=== PATIENT | male | born 1980 ===

== ENCOUNTER 2017-01-05 11:11 | Emergency (ER) | payer OTHER ==
[2017-01-05] MEDS ORDERED: Sodium Chloride 0.9% 1,000 ML IV STA (13:08)
[2017-01-05 13:11] VITALS: BP 125/75; PULSE 61; RESP 20; TEMP 98.3; O2SAT 98
[2017-01-05 13:38] LABS: BASO % 0.4 % (0.0-2.0); EOS # 0.1 K/uL (0.0-0.7); EOS % 1.2 % (0.0-4.0); HEMATOCRIT 47.6 % (35.0-51.0); LYMPH # 1.8 K/uL (1.0-4.3); LYMPH % 29.8 % (20.0-40.0); MEAN CELL VOLUME 77.3 fl (80.0-94.0); MEAN CORPUSCULAR HEMOGLOBIN 25.4 pg (27.0-31.0); MEAN CORPUSCULAR HGB CONC 32.9 g/dL (33.0-37.0); MEAN PLATELET VOLUME 8.6 fl (7.2-11.7); MONO # 0.4 K/uL (0.0-0.8); MONO % 7.2 % (0.0-10.0); NEUT # 3.6 K/uL (1.8-7.0); NEUT % 61.4 % (50.0-75.0); NRBC % 0.1 % (0.0-0.0); RED CELL DISTRIBUTION WIDTH 14.2 % (11.5-14.5); WHITE BLOOD COUNT 5.9 K/uL (4.8-10.8)
[2017-01-05 13:50] LABS: ALB/GLOB RATIO 1.1 (1.0-2.1); ALKALINE PHOSPHATASE 80 U/L (38-126); ALT/SGPT 42 U/L (21-72); AST/SGOT 33 U/L (17-59); BILIRUBIN,TOTAL 0.9 mg/dl (0.2-1.3); BLOOD UREA NITROGEN 11 mg/dl (9-20); CALCIUM 9.8 mg/dL (8.4-10.2); CARBON DIOXIDE 26 mmol/L (22-30); CHLORIDE 102 mmol/L (98-107); GFR AFRICAN-AMERICAN > 60; GLUCOSE,RANDOM 100 mg/dL (75-110); LIPASE 153 U/L (23-300); SODIUM 144 mmol/l (132-148); TOTAL PROTEIN 8.6 G/DL (6.3-8.2)
[2017-01-05 14:02] LABS: POTASSIUM 4.6 MMOL/L (3.6-5.0)
--- NOTE | 2017-01-05 14:10 | ED PDOC ---
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 states for the past 2 weeks he's had RUQ abdominal pain radiating to his R flank area. Reports pain is intermittent. On Thursday he went to [place] [facility] and had blood work done but no radiologic diagnostics and was told he has " gallstone colic." Reports he was given pain medication (pt. does not remember name) which has been working but today at work he did not take his pain medication and pain returned prompting ED visit. Denies fever, N/V/D, previous abdominal surgeries, chest pain, SOB, constipation, melena, hematochezia, BRBPR. Past Medical History Reviewed: Historical Data, Nursing Documentation, Vital Signs Vital Signs: Last Vital Signs Temp 98.3 F 01/05/17 11:18 Pulse 61 01/05/17 11:18 Resp 20 01/05/17 11:18 BP 125/75 01/05/17 11:18 Pulse Ox 98 01/05/17 14:11 - Family History Family History: States: No Known Family Hx - Allergies Allergies/Adverse Reactions: Allergies Allergy/AdvReac Type Severity Reaction Status Date / Time No Known Allergies Allergy Verified 01/05/17 12:06 Review of Systems ROS Statement: Except As Marked, All Systems Reviewed And Found Negative Gastrointestinal: Positive for: Abdominal Pain Physical Exam - Reviewed Nursing Documentation Reviewed: Yes Vital Signs Reviewed: Yes - Physical Exam Appears: Positive for: Well, Non-toxic, No Acute Distress Head Exam: Positive for: ATRAUMATIC, NORMAL INSPECTION, NORMOCEPHALIC Skin: Positive for: Normal Color, Warm. Negative for: Rash Eye Exam: Positive for: EOMI, Normal appearance, PERRL ENT: Positive for: Normal ENT Inspection Neck: Positive for: Normal, Painless ROM Cardiovascular/Chest: Positive for: Regular Rate, Rhythm Respiratory: Positive for: CNT, Normal Breath Sounds Gastrointestinal/Abdominal: Positive for: Normal Exam, Bowel Sounds, Soft, Other (Negative Ku's sign). Negative for: Tenderness Back: Positive for: Normal Inspection. Negative for: L CVA Tenderness, R CVA Tenderness Extremity: Positive for: Normal ROM Neurologic/Psych: Positive for: Alert, Oriented - Laboratory Results Result Diagrams: 01/05/17 13:20 01/05/17 13:20 - ECG O2 Sat by Pulse Oximetry: 98 - Progress ED Course And Treament: Labs ordered. Abd US ordered. IV line established. Abd US: negative. Re-evaluation Time: 15:55 (Pt. states he is feeling much better. Abd soft and non-tender. Results d/w patient and instructed to continue taking pain medications and to f/u with clinic which he made an appointment with for the end of the month. ) Condition: Re-examined, Improved Disposition - Clinical Impression Clinical Impression: Abdominal pain - Patient ED Disposition Is Patient to be Admitted: No - Disposition Disposition: Routine/Home Disposition Time: 15:56 Condition: IMPROVED Instructions: Abdominal Pain (ED)
--- NOTE | 2017-01-05 15:14 | US ---
HISTORY: RUQ abdominal pain COMPARISON: None available. TECHNIQUE: Sonographic evaluation of the abdomen. FINDINGS: LIVER: Measures 11.8 cm in sagittal dimension and appears within normal limits of size, shape, and echotexture. No focal hepatic mass identified. The main portal vein appears patent with normal directional flow. No intrahepatic bile duct dilatation. GALLBLADDER: No gallstones. No gallbladder wall thickening. Negative sonographic Ku's sign as assessed by the engineering secretary. COMMON BILE DUCT: Measures 3 mm. PANCREAS: Not well visualized. RIGHT KIDNEY: Measures 10.0 x 4.6 x 4.8cm. No obstructing calculus or hydronephrosis identified. LEFT KIDNEY: Measures 9.0 x 5.8 x 5.1cm. No obstructing calculus or hydronephrosis identified. SPLEEN: Measures approximately 8.6 cm. AORTA: Limited views appear unremarkable. IVC: Limited views appear unremarkable. OTHER FINDINGS: None. IMPRESSION: No acute findings.
== END 2017-01-05 16:09 | disposition home or self-care (01) ==
LOC: H.ER 11:11
DX: R10.11 Right upper quadrant pain (principal)

== ENCOUNTER 2017-04-30 13:00 | Emergency (ER) | payer OTHER ==
[2017-04-30 13:08] VITALS: BP 142/65; PULSE 66; RESP 16; TEMP 97; O2SAT 98
--- NOTE | 2017-04-30 13:24 | ED PDOC ---
Syncope/Near Syncope/Dizziness Time Seen by Provider: 04/30/17 13:08 Chief Complaint (Nursing): Dizziness/Lightheaded Chief Complaint (Provider): Dizzy History Per: Patient Additional Complaint(s): 37 yo male, no PMH, presents to ED with complaints of "dizziness since Thursday ". Past Medical History Vital Signs: Last Vital Signs Temp 97.0 F L 04/30/17 13:07 Pulse 66 04/30/17 13:07 Resp 16 04/30/17 13:07 BP 142/65 04/30/17 13:07 Pulse Ox 98 04/30/17 13:07 - Family History Family History: States: No Known Family Hx - Home Medications Home Medications: Ambulatory Orders Medication Instructions Recorded Methylprednisolone [Medrol Dose 4 mg PO DAILY #21 mg 04/30/17 Pack (21 tabs)] - Allergies Allergies/Adverse Reactions: Allergies Allergy/AdvReac Type Severity Reaction Status Date / Time No Known Allergies Allergy Verified 01/05/17 12:06 - Laboratory Results Result Diagrams: 04/30/17 13:35 04/30/17 13:35 - ECG O2 Sat by Pulse Oximetry: 98 Medical Decision Making Medical Decision Making: IV access established and treatment initiated with Antivert PO MRI IMPRESSION: Mild inferior cerebellar tonsillar herniation, 7 mm below the foramen magnum compatible with type 1 Chiari malformation. .Mild bilateral mastoid air cell opacification. Labs resulted and reviewed with pt who demonstrated full understanding. Case discussed with neuro on-call, Dr. Worley, who advised Pt stable for discharge at this time. Follow up out pt with neurology. Pt reports feeling improved on re-eval and neruo exam is non focal. Disposition - Clinical Impression Clinical Impression: Vertigo - Patient ED Disposition Is Patient to be Admitted: No - Disposition Referrals: Isai Munroe MD [Staff Provider] - Disposition: Routine/Home Disposition Time: 17:32 Condition: STABLE Prescriptions: Methylprednisolone [Medrol Dose Pack (21 tabs)] 4 mg PO DAILY #21 mg Instructions: Vertigo (ED) Forms: [facility] (Swedish)
[2017-04-30 13:51] LABS: BASO % 0.7 % (0.0-2.0); EOS # 0.1 K/uL (0.0-0.7); HEMOGLOBIN 15.4 g/dL (12.0-18.0); LYMPH # 1.3 K/uL (1.0-4.3); MEAN CELL VOLUME 79.2 fl (80.0-94.0); MEAN CORPUSCULAR HEMOGLOBIN 25.9 pg (27.0-31.0); MEAN CORPUSCULAR HGB CONC 32.6 g/dL (33.0-37.0); MEAN PLATELET VOLUME 8.5 fl (7.2-11.7); MONO # 0.6 K/uL (0.0-0.8); MONO % 8.4 % (0.0-10.0); NEUT # 4.9 K/uL (1.8-7.0); NEUT % 70.9 % (50.0-75.0); NRBC % 0.1 % (0.0-0.0); RBC 5.94 Mil/uL (4.40-5.90); RED CELL DISTRIBUTION WIDTH 14.2 % (11.5-14.5); WHITE BLOOD COUNT 6.9 K/uL (4.8-10.8)
[2017-04-30 14:08] LABS: ALB/GLOB RATIO 1.2 (1.0-2.1); ALBUMIN 4.3 g/dL (3.5-5.0); ALT/SGPT 34 U/L (21-72); AST/SGOT 28 U/L (17-59); BLOOD UREA NITROGEN 12 mg/dl (9-20); CALCIUM 9.6 mg/dL (8.4-10.2); GFR AFRICAN-AMERICAN > 60; GFR NON-AFRICAN AMERICAN > 60
[2017-04-30 15:20] LABS: SQUAMOUS EPITHIAL < 1 /hpf (0-5); URINE BILIRUBIN NEGATIVE (NEGATIVE); URINE BLOOD NEGATIVE (NEGATIVE); URINE CLARITY SLIGHTY-CLOUDY (Clear); URINE COLOR YELLOW (YELLOW); URINE GLUCOSE (UA) NEG (Normal); URINE LEUKOCYTE ESTERASE NEG Leu/uL (Negative); URINE NITRATE NEGATIVE (NEGATIVE); URINE PROTEIN 30 mg/dL (NEGATIVE); URINE UROBILINOGEN 0.2-1.0 mg/dL (0.2-1.0)
--- NOTE | 2017-04-30 16:12 | MRI ---
PROCEDURE: MRI BRAIN WITHOUT CONTRAST HISTORY: dizziness COMPARISON: None. TECHNIQUE: Multiplanar, multisequence MR images of the brain were obtained without intravenous contrast enhancement. FINDINGS: HEMORRHAGE: None DWI: No evidence of an acute or early subacute infarction. BRAIN PARENCHYMA: No mass effect or edema. No atrophy or chronic microvascular ischemic changes. VENTRICLES: Unremarkable. No hydrocephalus. CRANIUM: Normal. ORBITS: Grossly unremarkable. PARANASAL SINUSES/MASTOIDS: Mild bilateral mastoid air cell opacification. VASCULAR SYSTEM: Skull base flow voids intact. OTHER FINDINGS: Mild inferior cerebellar tonsillar herniation, 7 mm below the foramen magnum compatible with type 1 Chiari malformation.. IMPRESSION: Mild inferior cerebellar tonsillar herniation, 7 mm below the foramen magnum compatible with type 1 Chiari malformation. .Mild bilateral mastoid air cell opacification.
--- NOTE | 2017-05-01 07:30 | CARD ---
APPROVED REPORT EKG Measurement Heart [id number] <Conclusion> Sinus bradycardia Otherwise normal ECG
== END 2017-04-30 17:25 | disposition home or self-care (01) ==
LOC: H.ER 13:00
DX: R42 Dizziness and giddiness (principal)

== ENCOUNTER 2017-06-25 22:34 | Emergency (ER) | payer SELFPAY ==
[2017-06-25] MEDS ORDERED: Sodium Chloride 0.9% 1,000 ML IV STA (23:17)
[2017-06-25 23:45] LABS: BASO # 0.1 K/uL (0.0-0.2); BASO % 0.7 % (0.0-2.0); EOS # 0.3 K/uL (0.0-0.7); EOS % 2.8 % (0.0-4.0); HEMATOCRIT 44.7 % (35.0-51.0); LYMPH # 2.7 K/uL (1.0-4.3); LYMPH % 25.7 % (20.0-40.0); MEAN CELL VOLUME 80.5 fl (80.0-94.0); MEAN CORPUSCULAR HGB CONC 32.3 g/dL (33.0-37.0); MEAN PLATELET VOLUME 8.8 fl (7.2-11.7); MONO # 0.8 K/uL (0.0-0.8); MONO % 7.9 % (0.0-10.0); NEUT # 6.5 K/uL (1.8-7.0); NEUT % 62.9 % (50.0-75.0); RED CELL DISTRIBUTION WIDTH 13.9 % (11.5-14.5); WHITE BLOOD COUNT 10.3 K/uL (4.8-10.8)
[2017-06-25 23:53] LABS: ALB/GLOB RATIO 1.4 (1.0-2.1); ALKALINE PHOSPHATASE 65 U/L (38-126); ALT/SGPT 23 U/L (21-72); AST/SGOT 24 U/L (17-59); BILIRUBIN,TOTAL 0.2 mg/dl (0.2-1.3); BLOOD UREA NITROGEN 18 mg/dl (9-20); CALCIUM 9.6 mg/dL (8.4-10.2); CARBON DIOXIDE 27 mmol/L (22-30); CHLORIDE 103 mmol/L (98-107); GFR AFRICAN-AMERICAN > 60; GLUCOSE,RANDOM 114 mg/dL (75-110); POTASSIUM 3.8 MMOL/L (3.6-5.0); SODIUM 143 mmol/l (132-148); TOTAL PROTEIN 7.2 G/DL (6.3-8.2)
[2017-06-26 04:44] VITALS: BP 138/78; PULSE 81; RESP 17; TEMP 98.4; O2SAT 100
== END 2017-06-26 01:08 | disposition home or self-care (01) ==
LOC: H.ER 22:34
DX: K29.70 Gastritis, unspecified, without bleeding (principal)
CPT/HCPCS: 74176; 80053; 85025; 96374; 99284; J1885; J7040

== ENCOUNTER 2017-06-27 03:25 | Emergency (ER) | payer SELFPAY ==
[2017-06-27] MEDS ORDERED: Sodium Chloride 0.9% 1,000 ML IV STA (03:48)
[2017-06-27 04:30] LABS: BASO % 0.6 % (0.0-2.0); EOS # 0.4 K/uL (0.0-0.7); EOS % 5.2 % (0.0-4.0); HEMATOCRIT 44.3 % (35.0-51.0); LYMPH # 2.4 K/uL (1.0-4.3); LYMPH % 35.5 % (20.0-40.0); MEAN CELL VOLUME 79.5 fl (80.0-94.0); MEAN CORPUSCULAR HEMOGLOBIN 25.9 pg (27.0-31.0); MEAN CORPUSCULAR HGB CONC 32.6 g/dL (33.0-37.0); MEAN PLATELET VOLUME 8.4 fl (7.2-11.7); MONO # 0.7 K/uL (0.0-0.8); NEUT # 3.3 K/uL (1.8-7.0); NEUT % 48.7 % (50.0-75.0); NRBC % 0.1 % (0.0-0.0); RED CELL DISTRIBUTION WIDTH 14.1 % (11.5-14.5); WHITE BLOOD COUNT 6.7 K/uL (4.8-10.8)
[2017-06-27 04:37] LABS: ALB/GLOB RATIO 1.3 (1.0-2.1); ALKALINE PHOSPHATASE 62 U/L (38-126); ALT/SGPT 26 U/L (21-72); AST/SGOT 19 U/L (17-59); BILIRUBIN,TOTAL 0.3 mg/dl (0.2-1.3); BLOOD UREA NITROGEN 15 mg/dl (9-20); CALCIUM 8.9 mg/dL (8.4-10.2); CARBON DIOXIDE 25 mmol/L (22-30); CHLORIDE 104 mmol/L (98-107); GFR AFRICAN-AMERICAN > 60; GLUCOSE,RANDOM 98 mg/dL (75-110); LIPASE 180 U/L (23-300); POTASSIUM 3.7 MMOL/L (3.6-5.0); SODIUM 143 mmol/l (132-148); TOTAL PROTEIN 7.2 G/DL (6.3-8.2)
[2017-06-27 05:00] LABS: RBC URINE < 1 /hpf (0-3); URINE BILIRUBIN NEGATIVE (NEGATIVE); URINE BLOOD NEGATIVE (NEGATIVE); URINE COLOR STRAW (YELLOW); URINE GLUCOSE (UA) NEG (Normal); URINE KETONE NEGATIVE (NEGATIVE); URINE LEUKOCYTE ESTERASE NEG Leu/uL (Negative); URINE PROTEIN NEGATIVE (NEGATIVE); URINE UROBILINOGEN 0.2-1.0 mg/dL (0.2-1.0); WBC URINE 1 /hpf (0-5)
--- NOTE | 2017-06-27 05:06 | ED PDOC ---
HPI: Abdomen Time Seen by Provider: 06/27/17 03:36 Chief Complaint (Nursing): Abdominal Pain Chief Complaint (Provider): Abdominal Pain History Per: Patient History/Exam Limitations: no limitations Onset/Duration Of Symptoms: Days (x2) Current Symptoms Are (Timing): Still Present Additional Complaint(s): Adolfo Singh is a 37 year old male who presents to the emergency department with a complaint of RUQ pain that "comes and goes" for 2 days. Denied any nausea or vomiting. Patient was seen in ED on 06/25/17 for similar symptoms and treated for gastritis. PMD: none provided Past Medical History Reviewed: Historical Data, Nursing Documentation, Vital Signs Vital Signs: Last Vital Signs Temp 97.6 F 06/27/17 03:31 Pulse 50 L 06/27/17 03:31 Resp 16 06/27/17 03:31 BP 114/7 L 06/27/17 03:31 Pulse Ox 99 06/27/17 06:14 - Medical History PMH: Gastritis - Family History Family History: States: Unknown Family Hx - Home Medications Home Medications: Ambulatory Orders Medication Instructions Recorded Famotidine [Pepcid] 20 mg PO Q12 #20 tab 06/25/17 - Allergies Allergies/Adverse Reactions: Allergies Allergy/AdvReac Type Severity Reaction Status Date / Time No Known Allergies Allergy Verified 01/05/17 12:06 Review of Systems ROS Statement: Except As Marked, All Systems Reviewed And Found Negative Gastrointestinal: Positive for: Abdominal Pain (RUQ), Other (normal bowel movement). Negative for: Nausea, Vomiting Genitourinary Male: Negative for: Dysuria, Hematuria Physical Exam - Reviewed Nursing Documentation Reviewed: Yes Vital Signs Reviewed: Yes - Physical Exam Appears: Positive for: Well, Non-toxic, No Acute Distress Head Exam: Positive for: ATRAUMATIC, NORMAL INSPECTION, NORMOCEPHALIC Skin: Positive for: Normal Color Eye Exam: Positive for: Normal appearance, EOMI, PERRL. Negative for: Nystagmus ENT: Positive for: Normal ENT Inspection Neck: Positive for: Normal, Painless ROM, Supple. Negative for: Decreased ROM Cardiovascular/Chest: Positive for: Regular Rate, Rhythm. Negative for: Chest Non Tender Respiratory: Positive for: Normal Breath Sounds, Accessory Muscle Use. Negative for: Decreased Breath Sounds, Respiratory Distress Gastrointestinal/Abdominal: Positive for: Soft, Tenderness (RUQ; positive Ku 's point). Negative for: Normal Exam, Mass Back: Positive for: Normal Inspection. Negative for: L CVA Tenderness, R CVA Tenderness Extremity: Positive for: Normal ROM. Negative for: Tenderness, Pedal Edema, Deformity Neurologic/Psych: Positive for: Alert, Oriented - Laboratory Results Result Diagrams: 06/27/17 04:24 06/27/17 04:24 - ECG O2 Sat by Pulse Oximetry: 99 (RA) Pulse Ox Interpretation: Normal Medical Decision Making Medical Decision Making: Initial Impression: Biliary colic; cholecystitis Initial Plan: * CMP * Lipase * CBC * Morphine 2mg IVP * NS 1,000ml IV 250 mls/hr * Urinalysis * US gallbladder and pancreas Time: 0700 --Patient was signed out to Dr. Kit Purvis. Pending US results. Scribe Attestation: Documented by Stefany Romero, acting as a scribe for Mohit Felix MD. Provider Scribe Attestation: All medical record entries made by the Scribe were at my direction and personally dictated by me. I have reviewed the chart and agree that the record accurately reflects my personal performance of the history, physical exam, medical decision making, and the department course for this patient. I have also personally directed, reviewed, and agree with the discharge instructions and disposition. Disposition - Clinical Impression Clinical Impression: Biliary colic - Disposition Disposition: Transfer of Care Disposition Time: 07:00 Condition: STABLE Forms: [facility] (Nigerien) Patient Signed Over To: Kit Purvis Handoff Comments: pending ultrasound
--- NOTE | 2017-06-27 07:54 | ED PDOC ---
- Laboratory Results Result Diagrams: 06/27/17 04:24 06/27/17 04:24 - ECG O2 Sat by Pulse Oximetry: 99 (RA) Pulse Ox Interpretation: Normal Medical Decision Making Medical Decision Making: Patient endorsed to provider from Dr. Felix pending US results. Scribe Attestation Documented by Yael Toth acting as a scribe for Kit Purvis MD. Provider Attestation All medical record entries made by the Scribe were at my direction and personally dictated by me. I have reviewed the chart and agree that the record accurately reflects my personal performance of the history, physical exam, medical decision making, and the department course for this patient. I have also personally directed, reviewed, and agree with the discharge instructions and disposition. Disposition - Clinical Impression Clinical Impression: Biliary colic, Gastritis - POA Present On Arrival: None - Disposition Referrals: Jovany Gomez MD, PhD [Staff Provider] - Disposition: Routine/Home Disposition Time: 11:10 Condition: FAIR Prescriptions: Pantoprazole Sodium [Protonix] 40 mg PO DAILY #30 tablet. Instructions: Gastritis (ED) Forms: [facility] (Kyrgyz)
--- NOTE | 2017-06-27 09:51 | US ---
HISTORY: RUQ pain COMPARISON: CT abdomen and pelvis without contrast performed 06/25/17 TECHNIQUE: Sonographic evaluation of the right upper quadrant of the abdomen. FINDINGS: LIVER: Measures 14.5 cm in length. Echogenic liver may be seen in setting of hepatic parenchymal disease or fatty infiltration. No focal hepatic mass identified. The main portal vein appears patent with normal directional flow. No intrahepatic bile duct dilatation. GALLBLADDER: No gallstones. No gallbladder wall thickening or pericholecystic edema. Negative sonographic Ku's sign as assessed by the farmworker fryer farm. COMMON BILE DUCT: Measures 4 mm. PANCREAS: Not well-visualized. RIGHT KIDNEY: Measures 4.8 x 4.3 x 10.1 cm. No obstructing calculus or hydronephrosis identified. AORTA: Limited visualization appears grossly unremarkable. IVC: Limited visualization appears grossly unremarkable. OTHER FINDINGS: None . IMPRESSION: Echogenic liver may be seen in setting of hepatic parenchymal disease or fatty infiltration.
--- NOTE | 2017-06-27 11:10 | RAD ---
HISTORY: right sided pain COMPARISON: Lung bases on CT of the abdomen and pelvis performed 06/25/17 TECHNIQUE: Chest PA and lateral FINDINGS: LUNGS: No focal consolidation. Please note that chest x-ray has limited sensitivity for the detection of pulmonary masses. PLEURA: No significant pleural effusion identified. No definite pneumothorax . CARDIOVASCULAR: Heart size appears within normal limits. OSSEOUS STRUCTURES: No acute osseous abnormality identified. VISUALIZED UPPER ABDOMEN: Unremarkable. OTHER FINDINGS: None. IMPRESSION: No focal consolidation, significant pleural effusion, or definite pneumothorax identified.
[2017-06-27 11:58] VITALS: BP 124/76; PULSE 76; RESP 18; TEMP 98.2; O2SAT 98
== END 2017-06-27 11:20 | disposition home or self-care (01) ==
LOC: H.ER 03:25
DX: K29.70 Gastritis, unspecified, without bleeding (principal)
CPT/HCPCS: 71020; 76705; 80053; 81003; 83690; 85025; 96374; 99282; J2270; J7040

== ENCOUNTER 2017-09-03 02:53 | Emergency (ER) | payer OTHER ==
[2017-09-03 03:14] VITALS: BP 122/69; PULSE 64; RESP 18; TEMP 98.2; O2SAT 98
[2017-09-03] MEDS ORDERED: Alum-Mag Hydrox-Simethicone Susp (30 mL) PO ONE (03:40)
--- NOTE | 2017-09-03 03:49 | ED PDOC ---
HPI: Abdomen Time Seen by Provider: 09/03/17 03:04 Chief Complaint (Nursing): Abdominal Pain Chief Complaint (Provider): Abdominal Pain History Per: Patient History/Exam Limitations: no limitations Onset/Duration Of Symptoms: Hrs Current Symptoms Are (Timing): Still Present Location Of Pain/Discomfort: RUQ Additional Complaint(s): Adolfo Singh is a 37 year old male with no past medical history that presents to the ED with a chief complaint of non-radiating, atraumatic RUQ pain that he developed this evening. Patient states that he has had the same pain in several times in the past and was prescribed Pepcid, experienced good relief of symptoms. However, patient states that he no longer has Pepcid, therefore he was unable to treat his symptoms at home. He states that he has been to the ED several times for the same problems but has never followed up with PMD or specialist. He denies any fever, nausea, vomiting, diarrhea, chest pain, shortness of breath, back pain, flank pain, hematuria, or previous abdominal surgeries. Of Note: Used Manager Presentation #[id number], named Marlene Past Medical History Reviewed: Historical Data, Nursing Documentation, Vital Signs Vital Signs: Last Vital Signs Temp 98.2 F 09/03/17 03:12 Pulse 64 09/03/17 03:12 Resp 18 09/03/17 03:12 BP 122/69 09/03/17 03:12 Pulse Ox 98 09/03/17 03:51 - Medical History PMH: Gastritis - Family History Family History: States: Unknown Family Hx - Home Medications Home Medications: Ambulatory Orders Medication Instructions Recorded Famotidine [Pepcid] 20 mg PO Q12 #20 tab 06/25/17 Pantoprazole Sodium [Protonix] 40 mg PO DAILY #30 tablet. 06/27/17 Famotidine [Pepcid] 20 mg PO DAILY PRN #30 tab 09/03/17 - Allergies Allergies/Adverse Reactions: Allergies Allergy/AdvReac Type Severity Reaction Status Date / Time No Known Allergies Allergy Verified 01/05/17 12:06 Review of Systems Constitutional: Negative for: Fever Cardiovascular: Negative for: Chest Pain Respiratory: Negative for: Shortness of Breath Gastrointestinal: Negative for: Nausea, Vomiting, Diarrhea Musculoskeletal: Negative for: Back Pain, Other (denies flank pain) Physical Exam - Reviewed Nursing Documentation Reviewed: Yes Vital Signs Reviewed: Yes - Physical Exam Appears: Positive for: Non-toxic, No Acute Distress Head Exam: Positive for: ATRAUMATIC, NORMOCEPHALIC Skin: Positive for: Normal Color, Warm Eye Exam: Positive for: Normal appearance, EOMI, PERRL. Negative for: Scleral icterus Cardiovascular/Chest: Positive for: Regular Rate, Rhythm. Negative for: Murmur Respiratory: Positive for: Normal Breath Sounds. Negative for: Wheezing Gastrointestinal/Abdominal: Positive for: Normal Exam, Soft. Negative for: Tenderness (No tenderness to depalpation), Other (Negative Ku's sign) Back: Positive for: Normal Inspection. Negative for: L CVA Tenderness, R CVA Tenderness Extremity: Positive for: Normal ROM. Negative for: Tenderness, Swelling Neurologic/Psych: Positive for: Alert, Oriented. Negative for: Motor/Sensory Deficits - Laboratory Results Result Diagrams: 09/03/17 04:22 09/03/17 04:22 - ECG O2 Sat by Pulse Oximetry: 98 (RA) Pulse Ox Interpretation: Normal - Progress Re-evaluation Time: 04:30 Condition: Re-examined, Improved Medical Decision Making Medical Decision Making: Impression: GI Problem Plan: * CMP * CBC * Lipase * Maalox Plus 30 mL * Pepcid 20 mg IV * Reevaluation Scribe Attestation: Documented by Bethany Ken, acting as a scribe for Eamon Tucker PA-C. Provider Scribe Attestation: All medical record entries made by the Scribe were at my direction and personally dictated by me. I have reviewed the chart and agree that the record accurately reflects my personal performance of the history, physical exam, medical decision making, and the department course for this patient. I have also personally directed, reviewed, and agree with the discharge instructions and disposition. Disposition - Clinical Impression Clinical Impression: Gastritis - Patient ED Disposition Is Patient to be Admitted: No - Disposition Referrals: [facility] [place] [Outside] Disposition: Routine/Home Disposition Time: 04:30 Condition: IMPROVED Prescriptions: Famotidine [Pepcid] 20 mg PO DAILY PRN #30 tab PRN Reason: Dyspepsia Instructions: Gastritis (ED) Forms: [facility] (Libyan) Print Language: CHADIAN
[2017-09-03] MEDS ORDERED: Alum-Mag Hydrox-Simethicone Susp (30 mL) ONE (04:51)
[2017-09-03 04:53] LABS: BASO % 0.4 % (0.0-2.0); EOS # 0.3 K/uL (0.0-0.7); EOS % 2.8 % (0.0-4.0); HEMOGLOBIN 14.7 g/dL (12.0-18.0); LYMPH # 2.3 K/uL (1.0-4.3); LYMPH % 25.9 % (20.0-40.0); MEAN CELL VOLUME 80.1 fl (80.0-94.0); MEAN CORPUSCULAR HEMOGLOBIN 26.1 pg (27.0-31.0); MEAN CORPUSCULAR HGB CONC 32.6 g/dL (33.0-37.0); MEAN PLATELET VOLUME 8.3 fl (7.2-11.7); MONO # 0.9 K/uL (0.0-0.8); MONO % 10.2 % (0.0-10.0); NEUT # 5.4 K/uL (1.8-7.0); NEUT % 60.7 % (50.0-75.0); NRBC % 0.1 % (0.0-0.0); RBC 5.65 Mil/uL (4.40-5.90); RED CELL DISTRIBUTION WIDTH 14.3 % (11.5-14.5)
[2017-09-03 05:02] LABS: ALB/GLOB RATIO 1.1 (1.0-2.1); ALBUMIN 3.7 g/dL (3.5-5.0); ALT/SGPT 32 U/L (21-72); AST/SGOT 25 U/L (17-59); BLOOD UREA NITROGEN 18 mg/dl (9-20); CALCIUM 8.5 mg/dL (8.4-10.2); GFR AFRICAN-AMERICAN > 60; GFR NON-AFRICAN AMERICAN > 60; LIPASE 209 U/L (23-300)
== END 2017-09-03 06:47 | disposition home or self-care (01) ==
LOC: H.ER 02:53
DX: K29.70 Gastritis, unspecified, without bleeding (principal)

== ENCOUNTER 2019-02-14 12:50 | Emergency (ER) | payer OTHER ==
[2019-02-14 13:35] VITALS: RESP 16; TEMP 98.2; O2SAT 99
--- NOTE | 2019-02-14 14:55 | ED PDOC ---
Lower Extremity Pain/Injury Time Seen by Provider: 02/14/19 13:42 Chief Complaint (Nursing): Lower Extremity Problem/Injury Chief Complaint (Provider): Left Leg Pain History Per: Patient History/Exam Limitations: no limitations Onset/Duration Of Symptoms: Days (x2 weeks) Current Symptoms Are (Timing): Still Present Additional Complaint(s): 39 year old male presents to the ED for evaluation of left leg pain which began two weeks ago s/p taking up running for exercise. Patient state she started noticing left anterior knee swelling that has since progressed to posterior knee / calf pain associated with swelling. He notes taking medication but unsure of the name, last dose yesterday evening. Otherwise, denies hx DVT / PE, malignancy, hypercoagulability, recent long distance travel, and inability to bear weight. Past Medical History Reviewed: Historical Data, Nursing Documentation, Vital Signs Vital Signs: Last Vital Signs Temp 98.2 F 02/14/19 13:28 Pulse 70 02/14/19 13:28 Resp 16 02/14/19 13:28 BP Pulse Ox 99 02/14/19 13:28 Primary Care Provider: Non [facility] Provider, - Medical History PMH: Gastritis - Surgical History Surgical History: No Surg Hx - Family History Family History: States: Unknown Family Hx - Social History Current smoker - smoking cessation education provided: No Alcohol: Social Drugs: Denies - Immunization History Hx Tetanus Toxoid Vaccination: No Hx Influenza Vaccination: No Hx Pneumococcal Vaccination: No - Home Medications Home Medications: Ambulatory Orders Medication Instructions Recorded Famotidine [Pepcid] 20 mg PO Q12 #20 tab 06/25/17 Pantoprazole Sodium [Protonix] 40 mg PO DAILY #30 tablet. 06/27/17 Famotidine [Pepcid] 20 mg PO DAILY PRN #30 tab 09/03/17 Ibuprofen [Motrin Tab] 600 mg PO Q6 PRN 7 Days tab 02/14/19 - Allergies Allergies/Adverse Reactions: Allergies Allergy/AdvReac Type Severity Reaction Status Date / Time No Known Allergies Allergy Verified 01/05/17 12:06 Review of Systems Musculoskeletal: Positive for: Leg Pain (left with anterior and posterior knee swelling) Physical Exam - Reviewed Nursing Documentation Reviewed: Yes Vital Signs Reviewed: Yes - Physical Exam Appears: Positive for: No Acute Distress Pulses-Dorsalis Pedis (L): 2+ Pulses-Dorsalis Pedis (R): 2+ Extremity: Positive for: Normal ROM (normal flexion and extension of left ankle), Tenderness (mild tenderness to palpation of posterior knee), Calf Tenderness (mild tenderness to palpation of left calf), Capillary Refill (less than 2 seconds), Swelling (mild non-pitting edema from left ankle to left calf) Neurological/Psych: Positive for: Awake, Alert, Oriented (x3) - ECG O2 Sat by Pulse Oximetry: 99 (RA) Pulse Ox Interpretation: Normal Medical Decision Making Medical Decision Making: Time: 1415 Initial Impression: left leg pain Initial Plan: --Left knee XR --Ibuprofen 600mg PO --LLE US duplex --Reevaluate Left knee x-ray read by me: no acute fracture 1556 US FINDINGS: Good compressibility, augmentation and normal phasic blood flow and morphology are identified at the left common and superficial femoral as well as popliteal veins with the posterior tibial vein appearing patent as well. IMPRESSION: No sonographic evidence to suggest deep venous thrombosis left lower extremity. ------- Scribe Attestation: Documented by Shruthi Jensen, acting as a scribe for Irma Bocanegra PA-C Provider Scribe Attestation: All medical record entries made by the Scribe were at my direction and personally dictated by me. I have reviewed the chart and agree that the record accurately reflects my personal performance of the history, physical exam, medical decision making, and the department course for this patient. I have also personally directed, reviewed, and agree with the discharge instructions and disposition. 15:50: re-evaluated: feeling slightly better, patient informed of ultrasound results and stable for d/c home. Disposition - Clinical Impression Clinical Impression: Henriquez splint of left lower extremity - Patient ED Disposition Is Patient to be Admitted: No Counseled Patient/Family Regarding: Studies Performed, Diagnosis, Need For Followup - Disposition Referrals: [facility] [Outside] [facility] [place] [Outside] Disposition: Routine/Home Disposition Time: 16:20 Condition: STABLE Additional Instructions: Follow up with your primary care provider for further evaluation. REturn to ER if your pain worsens. Take Ibuprofen or Tylenol for pain. Wear henriquez brace and use proper shoes for running. Prescriptions: Ibuprofen [Motrin Tab] 600 mg PO Q6 PRN 7 Days tab PRN Reason: Pain, Moderate (4-7) Instructions: Lower Extremity Muscle Strain (DC) Forms: [facility] (Estonian) Print Language: GRENADIAN
--- NOTE | 2019-02-14 16:01 | US ---
Date of service: 02/14/2019 PROCEDURE: LEFT LOWER EXTREMITY VENOUS ULTRASOUND HISTORY: r/o dvt COMPARISON: None available. TECHNIQUE: Standard and duplex Doppler ultrasonography of the left lower extremity major deep veins was performed including graded compression and augmentation. Longitudinal and transverse projections have been submitted for interpretation. FINDINGS: Good compressibility, augmentation and normal phasic blood flow and morphology are identified at the left common and superficial femoral as well as popliteal veins with the posterior tibial vein appearing patent as well. IMPRESSION: No sonographic evidence to suggest deep venous thrombosis left lower extremity.
[2019-02-14 16:36] VITALS: BP 133/64; PULSE 76
--- NOTE | 2019-02-14 18:28 | RAD ---
Date of service: 02/14/2019 PROCEDURE: Left Knee Radiographs. HISTORY: Pain. COMPARISON: None. TECHNIQUE: 2 views obtained. FINDINGS: BONES: No acute fracture or destructive bony lesion identified. JOINTS: No subluxation or dislocation identified. JOINT EFFUSION: Moderate suprapatellar bursa effusion evident. OTHER FINDINGS: None. IMPRESSION: Moderate suprapatellar bursa effusion evident. No no acute fracture, dislocation or subluxation evident left knee.
== END 2019-02-14 16:30 | disposition home or self-care (01) ==
LOC: H.ER 12:50
DX: M76.812 Anterior tibial syndrome, left leg (principal)